=== PATIENT | male | born 1970 | race Caucasian/White ===

== ENCOUNTER → 2016-05-18 19:40 | Outpatient (CLI) | payer OTHER | END | disposition home or self-care (01) | LOC: D.SLEEP 05-15 20:00 | DX: G47.9 Sleep disorder, unspecified (principal) ==

== ENCOUNTER → 2016-06-15 19:42 | Outpatient (CLI) | payer OTHER | END | disposition home or self-care (01) | LOC: D.SLEEP 19:42 | DX: G47.33 Obstructive sleep apnea (adult) (pediatric) (principal) ==